=== PATIENT | female | born 1975 | race Hispanic/Latino ===

== ENCOUNTER 2025-04-01 13:58 | Emergency (ER) | payer OTHER ==
[~2025-04-01] VITALS: Ht 162.6 cm; Wt 82.6 kg
[2025-04-01 14:25] VITALS: BP 146/74; TEMP 98.2; O2SAT 97
[2025-04-01] MEDS ORDERED: Solu-medROL 125MG VIAL IVP ONE (14:30)
[2025-04-01] MEDS: IpraTROPium/alBUTERol SULFATE 3 ML SOLUTION IH ONE (14:55)
[2025-04-01 14:56] VITALS: PULSE 70; RESP 18
[2025-04-01] MEDS: Solu-medROL 125MG VIAL IM ONE (15:23)
--- NOTE | 2025-04-01 15:28 | HMCIMG ---
Exam Type: CHEST 1VW Clinical Information: Shortness a breath Comparison: None Findings: The lungs are clear of infiltrates. The heart is normal in size. The bony and soft tissue structures of the chest are unremarkable. Impression: Clear lungs.
[2025-04-01] MEDS ORDERED: ALBUHFA IH (15:57)
[2025-04-01] MEDS ORDERED: AZIT250T9 PO (15:57)
[2025-04-01] MEDS ORDERED: PRED1TAB PO (15:57)
--- NOTE | 2025-04-01 15:58 | ERN ---
General Chief Complaint: Adult-Asthma Stated Complaint: ASTHMA ATTACK/ANXIETY Time Seen by MD: 14:26 History of Present Illness Initial Comments 50-year-old female came in for shortness a breath. Patient has been using prior to arrival. Patient has no concerns. Allergies: Coded Allergies: No Known Drug Allergies (Unverified Allergy, Unknown, 04/01/25) Past Medical History Past Medical History: Anxiety, Asthma Past Surgical History: None Female( History) LMP: Jan 19, 2025 : 3 Para: 3 Aborts: 0 ROS Dictation Shortness a breath Physical Exam Physical Exam Dictation Vital Signs reviewed General Appearance: Alert, oriented x 3, no acute distress, well developed, nourished. Head and Face: non-traumatic. Eyes: PERRL, pink conjunctivas, eyelid no trauma, anterior chamber with arcus senilis. Ears: Pinnas intact and no signs of trauma or erythema ear canals clear and no discharge TM no erythema Nose: No discharge, no bleeding. Oropharynx: Mouth normal, tongue pink, pharynx clear,no erythema, tonsils no exudates, no abscesses noted, mucous membrane moist Neck: Supple, non-tender, no thyromegaly, no masses, no JVD, no bruits Breast:Deferred Chest:No tenderness, no crepitus, no paradoxical movement, no retractions Lungs:Clear, well-ventilated, symmetric, no rales, no wheezing, no rhonchi, no stridor, good breath sounds bilaterally Heart: Regular rate, regular rhythm, no murmur, no gallops Vascular: no peripheral edema, Abdomen: Soft, positive bowel sounds, nondistended, no guarding, nontender, no rebound, no masses no hepatomegaly, no splenomegaly, no Burciaga's sign, no hernias. Rectal: Deferred Genital: Deferred Neurological: Normal speech, motor function intact, sensory function intact Musculoskeletal: Neck nontender, full range of motion, back nontender, full range of motion, Extremities: nontender, full range of motion Skin: Color pink, dry, no turgor, no rash, no lacerations, no abrasions, no contusions. Lymphatic: Deferred MDM MDM: Differential diagnosis: Rationale: Tests considered and ordered secondary to shared decision making include: Previous outside records reviewed: Old ER visits. Risk of complication and/or morbidity or mortality of patient management: None Medications-Per medication reconciliation Need for hospitalization: Patient does not meet criteria for hospitalization. Need for emergency major/minor surgery: No There are no social concerns with this patient. Prescription drug management Prescriptions will include symptomatic care Patient's prior external medical records from other ER visits were reviewed by me as indicated. Prior testing and results from previous visits were reviewed. Prior tests were taken into account with medical decision making and resource utilization, independent historian/historians were used to obtain complete medical history. I independently interpreted the test that were performed, results were reviewed by me and considered findings on radiology if ordered. Medical management and examination interpretation discussions were had by me with other qualified healthcare professionals as indicated for the patient's care. ED Course Orders Procedure Category Date Status Time Chest 1vw RAD 04/01/25 Resulted 14:26 Ipratropium/Albuterol PHA 04/01/25 Complete Neb (Duoneb) 14:30 Methylprednisolone PHA 04/01/25 Complete Succ 125mg (Solu-Medr 14:30 Methylprednisolone PHA 04/01/25 Complete Succ 125mg (Solu-Medr 15:30 Current Medications Medications (Trade) Dose Ordered Sig/Ramone Route PRN Reason Start Time Stop Time Status Last Admin Dose Admin Albuterol (DUOneb) 1 UDVIAL ONCE ONCE IH 04/01/25 14:30 04/01/25 14:31 DC 04/01/25 14:55 Methylprednisolone Sodium Succinate (Solu-medROL 125MG) 125 mg ONCE ONCE IM 04/01/25 15:30 04/01/25 15:31 DC 04/01/25 15:23 Methylprednisolone Sodium Succinate (Solu-medROL 125MG) 125 mg ONCE ONCE IVP 04/01/25 14:30 04/01/25 15:11 DC Vital Signs Date Time Temp Pulse Resp B/P (MAP) Pulse Ox O2 Delivery O2 Flow Rate FiO2 04/01/25 14:56 70 18 04/01/25 14:25 98.2 70 16 146/74 98 0 04/01/25 14:25 98.2 70 16 146/74 97 Room Air* 0 21 DX & DISP Disposition: Discharge Departure Impression: Primary Impression: Asthma Condition: Stable Scripts Azithromycin (Azithromycin) 250 Mg Tablet 1 TAB PO AD for 5 Days, #5 TAB 0 Refills 2 the first day followed by 1 for days 2-5 Prov: SDAAF CASAS MD 04/01/25 Prednisone (Prednisone) 1 Mg Tablet 4 TAB PO DAILY for 5 Days, #5 TAB 0 Refills Prov: SADAF CASAS MD 04/01/25 Albuterol Sulfate (Ventolin Hfa/Proventil Hfa/Proair Hfa) 90 Mcg Puff 1-2 PUFF IH Q4H PRN for SHORTNESS OF BREATH for 5 Days, #1 INH 0 Refills PHARMACY TO DISPENSE 1 INHALER FOR USE Prov: SADAF CASAS MD 04/01/25 Referrals: LARRY CHAPARRO MD (PCP) SADAF CASAS MD April 01, 2025 15:58
[2025-04-01] MEDS: DiphenhydrAMINE HCL 25 MG CAPSULE PO ONE (16:18)
== END 2025-04-01 16:20 | disposition home or self-care (01) ==
LOC: EDH 13:58
DX: J45.909 Unspecified asthma, uncomplicated (principal); F41.9 Anxiety disorder, unspecified
CPT/HCPCS: 99283; 71045; 96372; 94640; Q0163; J2919